=== PATIENT | female | born 1995 ===

== ENCOUNTER 2019-12-06 14:45 | Inpatient (IN) | payer OTHER ==
[~2019-12-06] VITALS: Ht 165.1 cm; Wt 76.2 kg
[2019-12-18] MEDS ORDERED: PRENATAL TABLE1 EAC1 PO (04:10)
== END 2019-12-20 12:37 | disposition home or self-care (01) | DRG 807 ==
LOC: LDR 12-18 03:53 → OB/GYN 12-18 03:53 → SURH 12-21 14:45
PROVIDERS: ADMIT Obstetrics & Gynecology Maternal & Fetal Medicine; ATTEND Obstetrics & Gynecology Maternal & Fetal Medicine
PROC: 10E0XZZ Delivery of Products of Conception, External Approach (ICD-10-PCS; principal; 2019-12-18)
PROC: 0KQM0ZZ Repair Perineum Muscle, Open Approach (ICD-10-PCS; 2019-12-18)
PROC: 0W8NXZZ Division of Female Perineum, External Approach (ICD-10-PCS; 2019-12-18)
PROC: 3E033VJ Introduction of Other Hormone into Peripheral Vein, Percutaneous Approach (ICD-10-PCS; 2019-12-18)
PROC: 4A1HXFZ Monitoring of Products of Conception, Cardiac Rhythm, External Approach (ICD-10-PCS; 2019-12-18)
DX: O70.1 Second degree perineal laceration during delivery (principal); Z37.0 Single live birth; Z3A.39 39 weeks gestation of pregnancy; Z20.828 Contact with and (suspected) exposure to other viral communicable diseases

== ENCOUNTER 2019-12-16 10:57 | Outpatient (CLI) | payer OTHER | END 2019-12-16 12:04 | disposition home or self-care (01) | LOC: NST 10:57 | PROVIDERS: ATTEND Obstetrics & Gynecology Maternal & Fetal Medicine | DX: Z34.83 Encounter for supervision of other normal pregnancy, third trimester (principal) ==